=== PATIENT | female | born 1985 | race Caucasian/White ===

== ENCOUNTER 2024-11-13 10:13 | Inpatient (IN) | payer SELFPAY ==
[2024-11-14 07:29] VITALS: BMI 33.5
[2024-11-14] MEDS ORDERED: Acetaminophen 500 MG TAB PO PRN (08:25)
[2024-11-14] MEDS ORDERED: Carboprost 250 MCG/ML AMP IM PRN (08:25)
[2024-11-14] MEDS ORDERED: Ondansetron PF 4 MG/2 ML Vial IVP PRN ×2 (08:25→15:02)
[2024-11-14] MEDS ORDERED: Diphenoxylate HCl/Atropine Tablet PO PRN (08:25)
[2024-11-14] MEDS ORDERED: Lidocaine 1% (PF) 30 ML VIAL SC PRN (08:25)
[2024-11-14] MEDS ORDERED: Promethazine HCl 25 MG/ML VIAL IM PRN ×2 (08:25→15:02)
[2024-11-14] MEDS ORDERED: Ibuprofen 800 MG TAB PO PRN (08:25)
[2024-11-14] MEDS ORDERED: fentaNYL 50 mcg/mL 1 mL Vial SLOW IVP PRN (08:25)
[2024-11-14] MEDS ORDERED: hydrALAZINE 20 MG/ML VIAL SLOW IVP PRN ×2 (08:25→20:11)
[2024-11-14] MEDS ORDERED: Methylergonovine 0.2 MG/ML VIAL IM PRN (08:25)
[2024-11-14] MEDS ORDERED: Tranexamic Acid 1,000 MG/10 ML VIAL IVP PRN (08:25)
[2024-11-14] MEDS ORDERED: HYDROcodone/Acetaminophen 5/325 mg Tablet PO PRN ×2 (08:25→20:11)
[2024-11-14] MEDS ORDERED: Misoprostol 200 MCG TAB PR PRN (08:25)
[2024-11-14] MEDS ORDERED: Oxytocin 30 units/NS 500 ML 500 ML IV SCH (08:30)
[2024-11-14 08:42] LABS: Hematocrit 38.8 % (34.9-44.5); Hemoglobin 13.3 g/dL (12.0-15.5); Mean Corpuscular HGB CONC 34.3 g/dL (32.0-36.0); Mean Corpuscular Hemoglobin 30.6 pg (27.0-33.0); Mean Corpuscular Volume 89.2 fL (81.6-98.3); Mean Platelet Volume 12.1 fL (7.4-10.4); Platelet Count 205 10x3/uL (150-450); RBC Distribution Width 12.8 % (11.5-14.5); Red Blood Cell (RBC) Count 4.35 10x6/uL (3.90-5.03); White Blood Cell (WBC) Count 11.53 10x3/uL (3.5-10.5)
[2024-11-14] MEDS: Vancomycin 1 GM in Sodium Chloride 0.9% 250 ML 250 ML IVPB SCH (08:58)
[2024-11-14] MEDS: Oxytocin 30 units/NS 500 ML 500 ML IV SCH (09:09)
[2024-11-14 09:11] LABS: HBsAg Index 0.18 S/CO (0-0.99); Hep B Surf Ag - L&D Non-Reactive S/CO (NonReactive)
[2024-11-14 09:12] LABS: Syphilis Antibody Nonreactive (Nonreactive); Syphilis Antibody Index 0.04 S/CO (<1.00 Non-Reactive)
[2024-11-14 09:37] LABS: HIV (1/2) Antibody/Antigen Non-Reactive (NonReactive); HIV 1/2 INDEX 0.12 S/CO (<1.00)
[2024-11-14] MEDS: fentaNYL/Ropivacaine Epidural 100 ML ONE (14:50)
[2024-11-14] MEDS ORDERED: Lactated Ringer's 500 ML IV PRN (15:02)
[2024-11-14] MEDS ORDERED: diphenhydrAMINE 50 MG/ML VIAL IVP PRN (15:02)
[2024-11-14] MEDS ORDERED: Naloxone HCl 0.4 mg/ml Vial IVP PRN ×2 (15:02)
[2024-11-14] MEDS ORDERED: ePHEDrine Sulfate 50 MG/10 ML VIAL SLOW IVP PRN (15:02)
[2024-11-14] MEDS ORDERED: Moisturizing Cream (Eucerin) 113 GM JAR TOP PRN (15:02)
[2024-11-14] MEDS ORDERED: Acetaminophen 325 MG TAB PO PRN (15:02)
[2024-11-14] MEDS ORDERED: fentaNYL 2 mcg/Ropivacaine 0.2% Epidural 100 ML CADD EPIDURAL SCH (15:15)
[2024-11-14] MEDS ORDERED: Communication Order-Pharmacy FS SCH (15:15)
[2024-11-14] MEDS ORDERED: Bupivacaine 0.25% HCL 30 ML VIAL ONE (16:00)
[2024-11-14] MEDS ORDERED: Milk Of Magnesia 30 ML UDCUP PO PRN (20:11)
[2024-11-14] MEDS ORDERED: Preparation H Ointment 28 GM TUBE PR PRN (20:11)
[2024-11-14] MEDS ORDERED: Boostrix 0.5 ML (Tdap) VIAL (>/=7 yrs of age) IM ONE (20:11)
[2024-11-14] MEDS ORDERED: Benzocaine-Menthol 82.5 ML CAN TOP PRN (20:11)
[2024-11-14] MEDS ORDERED: Measles/Mumps/Rubella 10 MCG/0.5 ML VIAL SC ONE (20:11)
[2024-11-14] MEDS ORDERED: Bisacodyl 10 MG SUPP PR PRN (20:11)
[2024-11-14] MEDS ORDERED: Lanolin Ointment 7 GM TUBE TOP PRN (20:11)
[2024-11-14] MEDS: Ibuprofen 800 MG TAB PO SCH (21:45)
[2024-11-14] MEDS: Docusate 100 MG CAP PO SCH (21:45)
[2024-11-14] MEDS: Witch Hazel 100 PAD JAR TOP PRN (23:56)
[2024-11-15] MEDS: Ferrous Sulfate 325 MG TAB PO SCH (08:34)
[2024-11-15 16:09] VITALS: BP 135/79; TEMP 97.7
== END 2024-11-15 18:20 | disposition home or self-care (01) | DRG 807 ==
LOC: EDSEX → CSHLD 11-14 06:01 → CSHPP 11-14 20:40
PROVIDERS: ADMIT Family Medicine; ATTEND Family Medicine
PROC: 10E0XZZ Delivery of Products of Conception, External Approach (ICD-10-PCS; principal; 2024-11-14)
PROC: 0HQ9XZZ Repair Perineum Skin, External Approach (ICD-10-PCS; 2024-11-14)
DX: O48.0 Post-term pregnancy (principal); Z37.0 Single live birth; O70.0 First degree perineal laceration during delivery; Z3A.40 40 weeks gestation of pregnancy
CPT/HCPCS: 51702; 85027; 86780; 86850; 86900; 86901; 87340; 87389; J0665; J2590; J3370; J7050